=== PATIENT | female | born 1985 | race Caucasian/White ===

== ENCOUNTER → 2017-02-21 | Outpatient (CLI) | payer OTHER, SELFPAY | PROVIDERS: Visit Provider Emergency Medicine | DX: R53.1 Weakness (principal); Z79.899 Other long term (current) drug therapy | CPT/HCPCS: 80053; 80305; 80324; 80346; 80353; 85025; 85651; 86140; G0480 ==

== ENCOUNTER → 2023-01-02 20:15 | Outpatient (CLI) | payer MEDICAID, SELFPAY ==
[2023-01-02 20:23] LABS: Coronavirus 19, PCR Not Detected (NotDetected); Influenza A, PCR Not Detected (NotDetected); Influenza B, PCR Not Detected (NotDetected)
== END ==
PROVIDERS: PCP Internal Medicine; Visit Provider Internal Medicine
DX: R05.8 Other specified cough (principal); R51.9 Headache, unspecified; R19.7 Diarrhea, unspecified; J02.9 Acute pharyngitis, unspecified
CPT/HCPCS: 87636

== ENCOUNTER 2023-05-13 14:26 | Emergency (ER) | payer MEDICAID, SELFPAY ==
[2023-05-13 15:50] VITALS: BP 164/98; PULSE 107; RESP 18; TEMP 36.9; O2SAT 99; BMI 25.9
--- NOTE | 2023-05-13 16:05 | EXP.UTC ---
Discharge Plan Disposition Patient Disposition: Home, Self-Care Condition: Good Prescriptions Prescriptions: New amoxicillin 875 mg tablet 875 mg PO Q12H Qty: 20 0RF methylprednisolone 4 mg Tablets,Dose Pack 4 mg PO DIRECTED 6 Days Qty: 21 0RF Rx Instructions: Take 1 pack as directed for 6 days [id number] [Bromfed DM] 2-30-10 mg/5 mL Syrup 5 ml PO Q6H PRN (Reason: Cough) Qty: 240 0RF Referrals Follow up/Referrals: Wilton Simeon DO [Primary Care Provider] - See instructions Activity Restrictions/Add. Instructions Additional Instructions/Restrictions: Drink plenty of fluids. Take tylenol or ibuprofen for pain or fever. Take the medications as directed. Follow up with your regular doctor. GO TO THE ER FOR ANY WORSENING SYMPTOMS Throw your tooth brush away and get a new one. Clinical Impressions Clinical Impression: Strep throat Stand Alone Forms Stand Alone Forms: Work/School Release Instructions Patient Instructions: DI for Strep Throat, Strep Throat Discharge ED Provider: Av Nelson [facility] General Stated complaint: soa rash chest/neck, blancas congestion st cough Time Seen by Provider: 05/13/23 16:04 History of Present Illness Provider Complaint: She states that for the past 2 days she has had sore throat, fatigue, malaise, and low grade fever. She has been exposed to strep throat by her son having it at home. Related Data Previous Rx's Medication Instructions Recorded amoxicillin 875 mg tablet 875 mg PO Q12H #20 tabs 05/13/23 [id number] 5 ml PO Q6H PRN Cough #240 mL 05/13/23 2 mg-30 mg-10 mg/5 mL oral syrup (Bromfed DM) methylprednisolone 4 mg tablets in 4 mg PO DIRECTED 6 days #21 tabs 05/13/23 a dose pack Allergies Allergy/AdvReac Type Severity Reaction Status Date / Time No Known Allergies Allergy Verified 05/13/23 16:09 [facility] Disclaimer: The information contained in this section may have been updated after the patient was seen, as this information can be updated by other users. Medical History Hypertension Surgical History Hx of tubal ligation Social History Smoking Status: Never smoker alcohol intake: never substance use type: former substance user current occupational status: employed Travel in the last 8 weeks: None ROS Obtained: Yes All systems reviewed & no additional complaints except as documented Constitutional Constitutional: Reports chills and Reports fever(s) Eyes Eyes: Denies eye discharge ENT Ears, Nose, Mouth, and Throat: Reports as per HPI Cardiovascular Cardiovascular: Denies chest pain Respiratory Respiratory: Denies chest congestion and Reports cough Gastrointestinal Gastrointestingal: Reports nausea; Denies abdominal pain, constipation, cramping, diarrhea or vomiting Musculoskeletal Musculoskeletal: Denies arthralgias Integumentary/Breasts Skin/Breast: Denies rash Neurologic Neurologic: Denies paresthesias Physical Exam General General appearance: alert and in no apparent distress Head Head exam: atraumatic, normocephalic and normal inspection Eye Eye exam: Present normal appearance, PERRL and EOMI ENT ENT exam: Present mucous membranes moist and normal external ear exam Expanded ENT Exam TM/Canal exam: Bilateral TM: erythema and bulging Nose exam: Absent sinus tenderness Mouth exam: Present normal external inspection; Absent drooling Teeth exam: Present normal inspection Throat exam: Present tonsillar erythema, tonsillomegaly and tonsillar exudate Neck Neck exam: Present normal inspection, full ROM and trachea midline; Absent tenderness, meningismus or lymphadenopathy Chest Chest inspection: Present normal inspection and symmetric chest wall rise; Absent tenderness Respiratory Respiratory exam: Present normal lung sounds bilaterally; Absent respiratory distress, wheezes, stridor or accessory muscle use Cardiovascular Cardiovascular exam: Present regular rate and normal rhythm; Absent systolic murmur or diastolic murmur Abdominal Exam Abdominal exam: Present soft and normal bowel sounds; Absent distention, tenderness, guarding, rebound or rigidity Extremities Exam Extremities exam: Present normal inspection and normal capillary refill; Absent calf tenderness Back Exam Back exam: Present normal inspection and full ROM; Absent tenderness, CVA tenderness (R) or CVA tenderness (L) Neurological Exam Neurological exam: Present alert, oriented X3 and CN II-XII intact Psychiatric Psychiatric exam: Present normal affect and normal mood Skin Skin exam: Present warm, dry, intact and normal color Medical Decision Making Medical Records Medical records reviewed: No I reviewed the patient's medical records. Mariano Inquiry Pt receiving controlled substance: No Lab Data Lab results reviewed: Yes I reviewed the patient's lab results.
[2023-05-13 16:23] LABS: UTC Influenza A Antigen Negative (Negative); UTC Strep Screen (Rapid) Positive (Negative)
[2023-05-13 16:24] LABS: UTC Influenza B Antigen Negative (Negative)
[2023-05-13 16:37] VITALS: BP 164/98; PULSE 107; RESP 18; TEMP 36.9; O2SAT 99
== END 2023-05-13 16:37 | disposition home or self-care (01) ==
PROVIDERS: Emergency Provider Nurse Practitioner Family; PCP Internal Medicine
DX: J02.0 Streptococcal pharyngitis (principal); R53.83 Other fatigue; R53.81 Other malaise; R50.9 Fever, unspecified; I10 Essential (primary) hypertension
CPT/HCPCS: 87804; 87880; 99204; 99212; G0463

== ENCOUNTER 2024-03-26 14:00 | Outpatient (CLI) | payer MEDICAID, SELFPAY ==
[2024-03-26 17:48] LABS: Basophils # 0.1 K/mm3 (0-0.2); Basophils % 0.7 % (0.1-2.0); Eosinophils # 0.1 K/mm3 (0.0-0.4); Eosinophils % 1.4 % (0.1-12.0); Hematocrit 39.2 % (37.0-47.0); Hemoglobin 12.5 g/dL (12.2-16.2); Lymphocytes # 1.3 K/mm3 (0.7-4.5); Mean Corpuscular HGB Conc 31.9 g/dL (31.8-35.4); Mean Corpuscular Hemoglobin 26.2 pg (27.0-31.2); Mean Platelet Volume 11.5 fl (7.4-10.4); Monocytes # 0.5 K/mm3 (0.1-1.0); Monocytes % 6.7 % (1.7-9.3); Neutrophils # 5.4 K/mm3 (1.8-7.8); Neutrophils % 72.9 % (37.0-80.0); Platelet Count 332 K/mm3 (142-424); Red Blood Count 4.78 M/mm3 (4.20-5.40); Red Cell Distribution Width 14.7 % (11.5-17.5); White Blood Count 7.3 K/mm3 (4.8-10.8)
[2024-03-26 18:41] LABS: Alanine Aminotransferase 35 U/L (12-78); Albumin Level 4.4 g/dl (3.5-5.0); Albumin/Globulin Ratio 1.4 (1.1-1.8); Alkaline Phosphatase 105 U/L (38-126); Anion Gap 16.3 mEq/L (5-15); Aspartate Amino Transferase 38 U/L (14-36); Bilirubin,Total 0.4 mg/dl (0.2-1.3); Blood Urea Nitrogen 12 mg/dl (7-17); Calcium 9.5 mg/dl (8.4-10.2); Carbon Dioxide 22 mmol/L (22.0-30.0); Chloride 105 mmol/L (98-107); Chol/HDL Ratio 3.5 (1-3.5); Cholesterol 163 mg/dl (140-200); Estimated Glomerular Filt Rate 70 ml/min (>60); GFR (African American) 85 ML/MIN (>60); Globulin 3.1 g/dL (1.3-3.2); Glucose 100 mg/dl (74-100); HDL Cholesterol 47 mg/dl (40-60); Potassium 4.3 mmoL/L (3.5-5.1); Sodium 139 mmol/L (136-145); Total Protein,Serum 7.5 g/dl (6.3-8.2); Triglycerides 178 mg/dl (30-150); VLDL Cholesterol 36 mg/dL (0-40)
[2024-03-26 18:53] LABS: Direct LDL Cholesterol 87.19 mg/dL (100-129)
[2024-03-26 19:00] LABS: 25-OH Vitamin D, Total 50.9 ng/mL (30-100)
[2024-03-26 19:12] LABS: Thyroid Stimulating Hormone 0.81 uIU/mL (0.465-4.68)
== END 2024-03-26 23:59 | disposition home or self-care (01) ==
LOC: LAB.DROPOF 03-27 10:16
PROVIDERS: PCP Nurse Practitioner Family; Visit Provider Family Medicine
DX: I10 Essential (primary) hypertension (principal); E55.9 Vitamin D deficiency, unspecified; R03.0 Elevated blood-pressure reading, without diagnosis of hypertension; K21.9 Gastro-esophageal reflux disease without esophagitis
CPT/HCPCS: 80053; 80061; 82306; 84443; 85025

== ENCOUNTER 2024-04-11 13:38 | Outpatient (CLI) | payer MEDICAID, SELFPAY | END 2024-04-11 23:59 | disposition home or self-care (01) | LOC: LAB.DROPOF 04-12 10:32 | PROVIDERS: PCP Student in an Organized Health Care Education/Training Program; Visit Provider Student in an Organized Health Care Education/Training Program | DX: R39.9 Unspecified symptoms and signs involving the genitourinary system (principal); N39.0 Urinary tract infection, site not specified | CPT/HCPCS: 87086; 87088; 87186 ==

== ENCOUNTER 2025-02-16 15:11 | Emergency (ER) | payer MEDICAID, SELFPAY ==
[2025-02-16] VITALS (9 sets, daily range): BP systolic 140–182; BP diastolic 80–125; PULSE 107–132; RESP 16–22; TEMP 37–37.1; O2SAT 96–98; BMI 26.5
--- NOTE | 2025-02-16 15:23 | ECG_ITS ---
APPROVED REPORT Exam: Resting ECG HR:129 bpm ECG Measurements Heart Rate 129 AXES MI 138 P 83 QRSd 94 QRS 75 QT 308 T 70 QTc 384 Conclusion Sinus tachycardia without acute ST or T wave changes concerning for ischemia Electronically signed by : Jayleen Peoples, 02/17/2025 23:47:07
--- NOTE | 2025-02-16 15:28 | ED_ITS ---
<Statement entered by Jayleen Peoples DO - 02/16/25 19:02> I was consulted by the NORA, and we discussed the complexity of problems being addressed. I approve the treatment and management plan for this patient's care in the emergency department, thus performing a substantial portion of the medical decision making. Jayleen Peoples DO Discharge Plan Disposition Patient Disposition: Home, Self-Care Condition: Good Prescriptions Prescriptions: New doxycycline hyclate 100 mg capsule 100 mg PO BID 5 Days Qty: 10 0RF benzonatate 100 mg capsule 100 mg PO BID PRN (Reason: cough) Qty: 14 0RF prednisone 20 mg tablet 40 mg PO DAILY 5 Days Qty: 10 0RF No Action omeprazole 20 mg capsule,delayed release(DR/EC) 20 mg PO DAILY Qty: 30 2RF losartan-hydrochlorothiazide 50-12.5 mg tablet 1 tab PO DAILY Qty: 30 3RF Referrals Follow up/Referrals: Escobar Perez APRN [Primary Care Provider, Family Practice] - See instructions Activity Restrictions/Add. Instructions Additional Instructions/Restrictions: Please return to the emergency department with any worsening signs or symptoms. Please take your antibiotic medication as prescribed. Please follow-up with your PCP in the upcoming days/weeks. Clinical Impressions Clinical Impression: Elevated blood pressure reading, Atypical pneumonia Instructions Patient Instructions: Cough, DI for Pneumonia in Adults, DI for Atypical Pneumonia Print Language Print Language: Kyrgyz Discharge ED Provider: Jayleen Peoples General Adult HPI General Chief complaint: Cough Stated complaint: sent by Ana, bp and heartrate up Time Seen by Provider: 02/16/25 15:20 Mode of Arrival: Ambulatory Source of Information: Patient and Relative Limitations: No Limitations History of Present Illness HPI narrative: 40-year-old female presents to the emergency department at the request of her PCP for tachycardia and hypertension, patient admits to productive cough that has been ongoing for the last 2 to 3 weeks, she endorses some relief with Mucinex, she endorses a 1 to 2-day history of dyspnea and fever and chills, Tmax was 101 ?F , recorded last night or the night before , patient states that she cannot remember , she denies any overt chest pain, does admit to orthopnea, denies any nausea vomiting constipation diarrhea no abdominal pain, denies any hematuria melena hematochezia hematemesis or hemoptysis, denies any vaginal bleeding or vaginal discharge, patient is a non-smoker denies any alcohol or drug use, denies any urinary symptomatology, patient does have past medical history consistent with hypertension, she states noncompliance with her medications, GERD, patient denies any surgical history except for tubal ligation. Initial triage vitals noted for tachycardia otherwise unremarkable Please note that above description of symptoms, in this electronic medical record under categorization of recalled from ER triage doctor by RN are reflective of an initial nursing assessment, however, is not reflective of my full history and physical exam that was personally taken and clarified. Consequentially, this preceding description of symptoms, which may include the patient's categorized chief complaint in the EMR, do not reflect my personal clinical impression, and the ultimate description of history of present illness and patient stated complaints should be deferred to this section of the note. Unless stated otherwise or congruent with this section of the note, additional signs, symptoms, or incongruence should be interpreted as inaccurate with my clinical impression. Onset (ago): week(s) Related Data Previous Rx's ?Medication ?Instructions ?Recorded omeprazole 20 mg capsule,delayed 20 mg PO DAILY #30 ca ps 03/26/24 release losartan 50 mg-hydrochlorothiazide 1 tab PO DAILY #30 tabs 04/09/24 12.5 mg tablet benzonatate 100 mg capsule 100 mg PO BID PRN cough #14 caps 02/16/25 doxycycline hyclate 100 mg capsule 100 mg PO BID 5 day s #10 caps 02/16/25 prednisone 20 mg tablet 40 mg (2 x 20 mg) PO DAILY 5 days 02/16/25 #10 tabs Allergies Allergy/AdvReac Type Severity Reaction Status Date / Time lisinopril AdvReac Intermediate cough Verified 02/16/25 14:45 [facility] Disclaimer: The information contained in this section may have been updated after the patient was seen, as this information can be updated by other users. Medical History (Updated 02/16/25 @ 17:37 by JOSTIN Diane) Shortness of breath URI (upper respiratory infection) Strep throat Hypertension Surgical History Hx of tubal ligation Family History Family/Other No significant family history Social History Smoking Status: Never smoker alcohol intake: never substance use type: former substance user current occupational status: employed Travel in the last 8 weeks?: None Have you lived/traveled outside [place] in past 30 days?: No Contact w/someone who lives/traveled outside US past 30 days?: No Exposure to someone with infectious disease in past 14 days?: No Do you have a fever (greater than 100.4 F or 38 C)?: No Have you tested positive for COVID-19?: No Exposed to someone with COVID-19 in past 14 days?: No Do you have a sore throat?: No Do you have a cough?: No Do you have any weakness?: No Do you have any diarrhea?: No Are you experiencing any unusual bleeding?: No Do you have any muscle aches/pain?: No Do you have any abdominal pain?: No Are you experiencing loss of taste or smell?: No Other Medical History Have you received the Pneumonia Vaccine: No ROS Obtained: Yes All systems reviewed & no additional complaints except as documented Physical Exam General General appearance: alert and in no apparent distress Head Head exam: atraumatic and normocephalic Eye Eye exam: Present PERRL and EOMI ENT ENT exam: Present mucous membranes moist Neck Neck exam: Present normal inspection Chest Chest inspection: Present normal inspection and symmetric chest wall rise Respiratory Respiratory exam: Present wheezes and other (Crackles and wheezes noted throughout bilateral lung schmitt that are mild in nature); Absent normal lung sounds bilaterally or respiratory distress Cardiovascular Cardiovascular exam: Present normal rhythm and tachycardia Abdominal Exam Abdominal exam: Present soft; Absent tenderness, guarding, rebound or rigidity Extremities Exam Extremities exam: Present normal inspection Neurological Exam Neurological exam: Present alert and oriented X3 Psychiatric Psychiatric exam: Present normal affect Skin Skin exam: Present warm and dry Medical Decision Making Medical Records Medical records reviewed: Yes I reviewed the patient's medical records. Screening: Per USPSTF and CDC recommendations, given the prevalence of disease in our region, it is our hospital?s policy to screen for HIV and viral Hepatitis for all patients aged 18 and over and those with ongoing risk factors. Mariano Inquiry Pt receiving controlled substance: No Mariano was queried for this patient: No Vital Signs: 02/16/25 15:14 02/16/25 15:14 02/16/25 15:19 Temperature 98.6 F 98.6 F Temperature Source Oral Oral Pulse Rate 132 H 127 H Pulse Rate [Right] 132 H Respiratory Rate 22 22 Blood Pressure 173/125 H 173/125 H Blood Pressure [Right Arm] 173/125 H Blood Pressure Mean Blood Pressure Mean [Right Arm] 141 Blood Pressure Source Automatic Cuff Blood Pressure Source [Right Arm] Automatic Cuff Blood Pressure Position Supine Blood Pressure Position [Right Arm] Supine 02 Sat by Pulse Oximetry 98 98 97 Oxygen Delivery Method Room Air Room Air 02/16/25 15:30 02/16/25 16:00 02/16/25 16:33 Temperature Temperature Source Pulse Rate 115 H 113 H 120 H Pulse Rate [Right] Respiratory Rate 18 18 Blood Pressure 152/111 H 159/108 H 152/102 H Blood Pressure [Right Arm] Blood Pressure Mean 125 116 Blood Pressure Mean [Right Arm] Blood Pressure Source Blood Pressure Source [Right Arm] Blood Pressure Position Blood Pressure Position [Right Arm] 02 Sat by Pulse Oximetry 97 98 96 Oxygen Delivery Method 02/16/25 17:00 02/16/25 17:30 02/16/25 18:01 Temperature Temperature Source Pulse Rate 111 H 124 H 113 H Pulse Rate [Right] Respiratory Rate 16 Blood Pressure 171/116 H 182/116 H 160/117 H Blood Pressure [Right Arm] Blood Pressure Mean 134 Blood Pressure Mean [Right Arm] Blood Pressure Source Blood Pressure Source [Right Arm] Blood Pressure Position Blood Pressure Position [Right Arm] 02 Sat by Pulse Oximetry 97 98 98 Oxygen Delivery Method Lab Data Lab results reviewed: Yes I reviewed the patient's lab results. Lab Results 02/16/25 15:20: WBC 11.7 H, RBC 4.35, Hgb 11.6 L, Hct 34.8 L, MCV 80.0 L, MCH 26.7 L, MCHC 33.3, RDW 16.7, Plt Count 376, MPV 10.7 H, Neut % (Auto) 76.4, Lymph % (Auto) 13.7, Logan % (Auto) 6.7, Eos % (Auto) 2.4, Baso % (Auto) 0.5, N eut # (Auto) 9.0 H, Lymph # (Auto) 1.6, Logan # (Auto) 0.8, Eos # (Auto) 0.3, Baso # (Auto) 0.1, D-Dimer < 0.25, Sodium 139, Potassium 3.8, Chloride 105, Carbon Dioxide 22, Anion Gap 15.8 H, BUN 14, Creatinine 1.00, Estimated Creat Clear 101, Estimated GFR 62, Est GFR ( Amer) 75, Glucose 108 H, Calcium 9.5, Magnesium 1.8, Total Bilirubin 0.8, AST 30, ALT 24, Alkaline Phosphatase 118, Troponin I < 0.01, NT-Pro-B Natriuret Pep 23.2, Total Protein 9.1 H, Albumin 4.7, Globulin 4.4 H, Albumin/Globulin Ratio 1.1, TSH 0.52, Thyroxine (T4) 15.3 H, Serum HCG, Qual Negative, HIV Ag/Ab Combo Qual Negative 02/16/25 16:52: Lactate 1.0 02/16/25 15:20 02/16/25 15:20 Orders (Tests/Meds): ED MEDICATIONS Discontinued Medications Generic Name Dose Route Start Last Admin Trade Name Freq PRN Reason Stop Dose Admin Sodium Chloride 1,000 mls @ 999 mls/hr 02/16/25 16:05 02/16/25 18:08 Sod Chlor 0.9% 1000ml Bag IV 02/16/25 17:05 Infused .Q1H1M ONE Infusion Ceftriaxone Sodium 2 gm/ 100 mls @ 200 mls/hr 02/16/25 16:05 02/16/25 17:12 Sodium Chloride IV 02/16/25 16:34 Infused ONCE ONE Infusion Azithromycin 500 mg/ Sodium 250 mls @ 250 mls/hr 02/16/25 16:07 02/16/25 18:08 Chloride IV 02/16/25 16:08 Infused ONCE ONE Infusion ORDERS Category Date Time Status CXR 2 view (NOT portable) [XR chest 2V] Stat Exams 02/16/25 15:30 Completed Complete Blood Count Auto Diff Stat Lab 02/16/25 15:20 Completed Comprehensive Metabolic Panel Stat Lab 02/16/25 15:20 Completed D-Dimer Stat Lab 02/16/25 15:20 Completed HCG Qualitative, Serum Stat Lab 02/16/25 15:20 Completed HIV Combo Stat Lab 02/16/25 15:20 Completed Hepatitis C Ab Qual. W/ RFX Stat Lab 02/16/25 15:20 Received Lactic Acid Stat Lab 12/15/25 16:52 Completed Magnesium Stat Lab 02/16/25 15:20 Completed Mini Respiratory Panel Stat Lab 02/16/25 15:18 Received NT Pro Brain Natriuretic Pep. Stat Lab 02/16/25 15:20 Completed T4 (Thyroxine) Stat Lab 02/16/25 15:20 Completed TSH [Thyroid Stimulating Hormone] Stat Lab 02/16/25 15:20 Completed Troponin I Q3H Lab 02/16/25 18:30 Ordered Troponin I Q3H Lab 02/16/25 21:30 Ordered Troponin I Stat Lab 02/16/25 15:20 Completed Blood Culture Stat Micro 02/16/25 16:33 Received Medical Decision Narrative: 40-year-old female presents to the emergency department with productive cough, shortness of air, orthopnea tachycardia, differential diagnose include but not limited to PE, cardiac arrhythmia, left-sided steroids, ACS, acute bronchitis, viral URI, pneumonia, pleural effusion, thyrotoxicosis, among others. I discussed this patient's case with the attending physician Will obtain basic of laboratory studies, EKG, chest x-ray, D-dimer, hCG qualitative, magnesium level mini respiratory panel, proBNP, TSH/T4 and troponin. Leukocytosis that is mild at 11.7, with tachycardia patient meeting sepsis criteria, give 1 L IV NS, MCV is decreased at 80, hemoglobin hematocrit are stable at 11.6/34.8 CMP is notable for D-dimer less than 0.25, troponin is less than 0.01 proBNP within normal limits. Will give patient IV azithromycin and IV ceftriaxone for sepsis criteria most likely community-acquired/atypical pneumonia, as well as obtain lactic acid level and blood cultures. T4 is elevated to 15.3 hCG qualitative negative TSH within normal I reviewed the patient's chest x-ray along the corresponding radiologic report, mild interstitial prominence slightly more prominent to the right upper lobe no focal airspace causation atypical right pneumonia could be considered no CHF no pleural effusion or pneumothorax heart size normal. No lactic acidosis Reexamination of the patient at approximately 5:30 PM, patient is resting comfortably in bed, still has quite persistent cough, and somewhat persistent tachycardia, but is improved, SpO2 within normal limits, I do believe the patient's tachycardia can be contributed to atypical pneumonia viral versus bacterial. I will prescribe the patient 100 mg p.o. doxycycline twice daily for 5 days as well as benzonatate p.o. and 40 mg p.o. prednisone daily for symptomatic relief. Tachycardia has somewhat improved after IV fluids, curb 65 score and PSI score low, thus will treat outpatient. Patient and family voiced understanding and agreement with current treatment plan/discharge plan. Follow- up with PCP in the upcoming days/weeks. Strict ED return precautions given. Critical Care Critical Care Time Critical Care Time: No
--- NOTE | 2025-02-16 15:30 | XR_ITS ---
PROCEDURE INFORMATION: Exam: XR Chest Exam date and time: 02/16/2025 3:59 PM Age: 40 years old Clinical indication: Productive cough 2 weeks; Additional info: Wheezing, fever, productive cough TECHNIQUE: Imaging protocol: Radiologic exam of the chest. Views: 2 views. COMPARISON: No relevant prior studies available. FINDINGS: Lungs: Diffuse mild interstitial prominence, slightly more prominent within the right upper lobe. No CHF. No focal airspace consolidation . Pleural spaces: No significant pleural effusion. No pneumothorax. Heart/Mediastinum: The heart size is normal. The mediastinal contours are smooth. Bones/joints: Mild scoliosis involving the thoracic and lumbar spine. IMPRESSION: Mild interstitial prominence, slightly more prominent within the right upper lobe. No focal airspace consolidation. Atypical or viral pneumonia could be considered. No CHF. No pleural effusion or pneumothorax. Heart size is normal.
[2025-02-16 15:38] LABS: Hematocrit 34.8 % (37.0-47.0); Hemoglobin 11.6 g/dL (12.2-16.2); Immature Granulocytes % 0.3 %; Mean Corpuscular HGB Conc 33.3 g/dL (31.8-35.4); Mean Corpuscular Hemoglobin 26.7 pg (27.0-31.2); Mean Corpuscular Volume 80.0 fl (81-99); Nucleated Red Blood Cells % 0 %; Platelet Count 376 K/mm3 (142-424); Red Blood Count 4.35 M/mm3 (4.20-5.40); Red Cell Distribution Width-SD 41.0 fL; White Blood Count 11.7 K/mm3 (4.8-10.8)
[2025-02-16 15:43] LABS: Magnesium 1.8 mg/dl (1.6-2.3)
[2025-02-16 15:44] LABS: Alanine Aminotransferase 24 U/L (12-78); Albumin Level 4.7 g/dl (3.5-5.0); Albumin/Globulin Ratio 1.1 (1.1-1.8); Alkaline Phosphatase 118 U/L (38-126); Anion Gap 15.8 mEq/L (5-15); Aspartate Amino Transferase 30 U/L (14-36); Bilirubin,Total 0.8 mg/dl (0.2-1.3); Blood Urea Nitrogen 14 mg/dl (7-17); Calcium 9.5 mg/dl (8.4-10.2); Carbon Dioxide 22 mmol/L (22.0-30.0); Chloride 105 mmol/L (98-107); Creatinine Clearance Estimated 101 mL/min (50-200); Creatinine,Serum 1.00 mg/dl (0.52-1.04); Estimated Glomerular Filt Rate 62 ml/min (>60); GFR (African American) 75 ML/MIN (>60); Globulin 4.4 g/dL (1.3-3.2); Glucose 108 mg/dl (74-100); Potassium 3.8 mmoL/L (3.5-5.1); Sodium 139 mmol/L (136-145); Total Protein,Serum 9.1 g/dl (6.3-8.2)
[2025-02-16 15:45] LABS: Coronavirus 19, PCR Not Detected (NotDetected); Influenza A, PCR Not Detected (NotDetected); Influenza B, PCR Not Detected (NotDetected)
[2025-02-16 15:52] LABS: D-Dimer < 0.25 ug/mL (0.0-0.5)
[2025-02-16 15:58] LABS: NT Pro Brain Natriuretic Pep. 23.2 pg/mL (0-125)
[2025-02-16 16:03] LABS: Troponin I < 0.01 ng/ml (0.00-0.034)
[2025-02-16 16:05] LABS: T4 (Thyroxine) 15.3 ug/dl (5.53-11.0)
[2025-02-16 16:06] LABS: HCG Qualitative, Serum Negative (Negative)
[2025-02-16 16:19] LABS: Thyroid Stimulating Hormone 0.52 uIU/mL (0.465-4.68)
[2025-02-16] MEDS: 0.9 % SODIUM CHLORIDE 1000ML 1,000 ML 999 ML IV (16:34)
[2025-02-16] MEDS: AZITHROMYCIN 500 MG in 0.9 % SODIUM CHLORIDE 250 ML 250 MG IV (16:54)
[2025-02-16 21:46] LABS: Hepatitis C Ab Qual. W/ RFX REACTIVE (Negative)
== END 2025-02-16 18:23 | disposition home or self-care (01) ==
PROVIDERS: Physician Assistant; Emergency Provider Student in an Organized Health Care Education/Training Program; PCP Nurse Practitioner Family
DX: J18.9 Pneumonia, unspecified organism (principal); R00.0 Tachycardia, unspecified; R06.2 Wheezing; I10 Essential (primary) hypertension
CPT/HCPCS: 71046; 80053; 83605; 83735; 83880; 84436; 84443; 84484; 84703; 85025; 85378; 86803; 87040; 87389; 87522; 87631; 93005; 96365; 96375; 99285; J0456; J0696; J7030; J7050